=== PATIENT | male | born 1980 | race Asian ===

== ENCOUNTER 2018-11-05 15:30 | Emergency (ER) | payer OTHER ==
[~2018-11-05] VITALS: Ht 172.7 cm; Wt 83.5 kg
[2018-11-05 15:41] VITALS: BP 128/79; Ht 172.7 cm; Wt 83.5 kg
== END 2018-11-05 18:36 | disposition home or self-care (01) ==
LOC: ED 15:30
DX: S02.5XXA Fracture of tooth (traumatic), initial encounter for closed fracture (principal); S01.511A Laceration without foreign body of lip, initial encounter; S80.01XA Contusion of right knee, initial encounter; W01.0XXA Fall on same level from slipping, tripping and stumbling without subsequent striking against object, initial encounter; Y93.89 Activity, other specified; Y92.89 Other specified places as the place of occurrence of the external cause; Y99.8 Other external cause status
CPT/HCPCS: 90715; J2001